=== PATIENT | male | born 1985 | race African-American/Black ===

== ENCOUNTER 2016-10-21 03:04 | Emergency (ER) | payer OTHER ==
[~2016-10-21] VITALS: Ht 172.7 cm; Wt 69.1 kg
[~2016-10-21 03:04] MED LIST: ACCU-CHEK FASTCLIX L XX; AMLODIPINE BESYL5 MG PO; AMOXICILLIN500 M2 PO; AMOXICILLIN500 MG PO; ANTIBIOTIC OINTMENT; ATORVASTATIN CA40 MG PO; BENADRYL 50MG C50 MG PO; CEPHALEXIN500 MG OR; CIPRO500 MG OR; DONNATA1 OR; FAMOTIDINE20 M1 OR; FISH OIL1000 MG PO; GLUCOPHAGE500 MG PO; HYDROCODONE/ACE1 TAB PO; LEVEMIR1000 UNITS SC; LOPID600 MG PO; LORTAB 10-325 M1 TAB PO; LORTAB 5 OR; LORTAB 7.5 OR; LOSARTAN POTASS25 MG PO; LOVAZA1 GM PO; METRONIDAZOL500 MG PO; MUPIROCIN2 % EX; NAPROSYN500 MG PO; NO CURRENT MEDS; NO HOME MEDS; ONE TOUCH ULTRA 50 XX; PEPCID20 MG PO; PHENERGAN25 MG/TAB PO; PRILOSEC20 MG/CAP PO; ULTRAM50 MG OR; ZANTAC150 M1 PO; ZOFRAN ODT4 MG OR
[2016-10-21 03:43] LABS: URINE BILIRUBIN - DIPSTICK NEGATIVE (NEGATIVE); URINE BLOOD DIPSTICK SMALL (NEGATIVE); URINE CLARITY CLEAR; URINE COLOR YELLOW; URINE GLUCOSE - DIPSTICK NEGATIVE (NEGATIVE); URINE KETONE NEGATIVE (NEGATIVE); URINE LEUK ESTERASE NEGATIVE (NEGATIVE); URINE NITRITE - DIPSTICK NEGATIVE (Negative); URINE PH 5.5 (4.5-8.0); URINE PROTEIN - DIPSTICK NEGATIVE (NEG-TRACE); URINE SPECIFIC GRAVITY 1.025; URINE UROBILINOGEN - DIPSTICK 0.2 E.U./dL (0.2)
[2016-10-21 03:45] LABS: HEMATOCRIT 44.3 % (39.0-50.0); HEMOGLOBIN 14.3 g/dl (14.0-18.0); IMMATURE GRANULOCYTES 0.5 % (0.0-1.0); MEAN CELL VOLUME 85.4 fL CALC (80.0-100.0); MEAN CORPUSCULAR HGB 27.6 pG CALC (26.0-32.0); MEAN CORPUSCULAR HGB CONC 32.3 g/L CALC (32.0-36.0); NEUT# 5.23 thou/uL (1.82-7.42); RED BLOOD COUNT 5.19 mill/uL (4.70-6.10); RED CELL DISTRI WIDTH 14.3 % (11.5-15.5)
[2016-10-21 03:48] LABS: BARBITURATES NEGATIVE (NEGATIVE); COCAINE POSITIVE (NEGATIVE); METHADONE NEGATIVE (NEGATIVE); OXCYCODONE NEGATIVE (NEGATIVE); TETRAHYDROCANNABIONOL NEGATIVE (NEGATIVE); TRICYLIC ANTIDEPRESSANTS NEGATIVE (NEGATIVE)
[2016-10-21 03:51] LABS: URINE RBC 0-2 RBC/hpf (0-5); URINE SQUAMOUS EPITHELIAL CELL FEW EPI/hpf (0-FEW); URINE WBC 0-2 WBC/hpf (0-5)
[2016-10-21 04:34] LABS: ALBUMIN 4.7 g/dL (3.2-5.0); ALKALINE PHOSPHATASE 74 u/l (38-126); ANION GAP 16 (6-22 (CALC)); BILIRUBIN, TOTAL 0.4 mg/dL (0.0-1.4); BUN 13 mg/dL (9-20); BUN/CREATININE RATIO 15 (12-20 (CALC)); CALCIUM 10.1 mg/dL (8.4-10.2); CARBON DIOXIDE 26 mmol/l (22-30); CHLORIDE 103 mmol/l (95-108); CREATININE 0.9 mg/dL (0.7-1.3); GFR > 60 ML/MIN (>=60 (CALC)); GFR FOR AFR.AMER. > 60 ML/MIN (>=60 (CALC)); GLUCOSE 122 mg/dL (75-110); POTASSIUM 4.4 mmol/l (3.5-5.1); SGOT/AST 70 u/l (17-59); SGPT/ALT 72 u/l (21-72); SODIUM 141 mmol/l (137-146); TOTAL PROTEIN 7.7 g/dL (6.3-8.2)
[2016-10-21 05:00] VITALS: BP 147/50
== END 2016-10-21 05:00 | disposition home or self-care (01) | DRG 897 ==
LOC: ED 03:04
PROVIDERS: Emergency Medicine
DX: F19.10 Other psychoactive substance abuse, uncomplicated (principal); I10 Essential (primary) hypertension; E11.9 Type 2 diabetes mellitus without complications; Z79.4 Long term (current) use of insulin

== ENCOUNTER 2017-02-27 18:38 | Observation (INO) | payer SELFPAY ==
[~2017-02-27] VITALS: Ht 172.7 cm; Wt 67.2 kg
[2017-02-27] MEDS ORDERED: BENTYL10 MG PO (18:56)
[2017-02-27] MEDS ORDERED: OMEPRAZOLE10 MG PO (18:56)
[2017-02-27 19:25] LABS: HEMATOCRIT 41.6 % (39.0-50.0); HEMOGLOBIN 14.7 g/dl (14.0-18.0); IMMATURE GRANULOCYTES 0.5 % (0.0-1.0); MEAN CELL VOLUME 82.5 fL CALC (80.0-100.0); MEAN CORPUSCULAR HGB 29.2 pG CALC (26.0-32.0); MEAN CORPUSCULAR HGB CONC 35.3 g/L CALC (32.0-36.0); NEUT# 7.23 thou/uL (1.82-7.42); RED BLOOD COUNT 5.04 mill/uL (4.70-6.10); RED CELL DISTRI WIDTH 13.2 % (11.5-15.5)
[2017-02-27 19:36] LABS: ALBUMIN 4.9 g/dL (3.2-5.0); ALKALINE PHOSPHATASE 116 u/l (38-126); AMYLASE 75 u/l (30-110); ANION GAP 21 (6-22 (CALC)); BILIRUBIN, TOTAL 0.5 mg/dL (0.0-1.4); BUN 15 mg/dL (9-20); BUN/CREATININE RATIO 15 (12-20 (CALC)); CALCIUM 10.8 mg/dL (8.4-10.2); CARBON DIOXIDE 23 mmol/l (22-30); CHLORIDE 100 mmol/l (95-108); GFR > 60 ML/MIN (>=60 (CALC)); GFR FOR AFR.AMER. > 60 ML/MIN (>=60 (CALC)); GLUCOSE 205 mg/dL (75-110); LIPASE 417 u/l (23-300); POTASSIUM 4.7 mmol/l (3.5-5.1); SGOT/AST 40 u/l (17-59); SGPT/ALT 79 u/l (21-72); SODIUM 140 mmol/l (137-146); TOTAL PROTEIN 8.8 g/dL (6.3-8.2)
[2017-02-27 21:06] LABS: URINE BLOOD DIPSTICK SMALL (NEGATIVE); URINE COLOR YELLOW; URINE GLUCOSE - DIPSTICK NEGATIVE (NEGATIVE); URINE KETONE NEGATIVE (NEGATIVE); URINE LEUK ESTERASE NEGATIVE (NEGATIVE); URINE NITRITE - DIPSTICK NEGATIVE (Negative); URINE PROTEIN - DIPSTICK 100 mg/dL (NEG-TRACE); URINE SPECIFIC GRAVITY >=1.030; URINE UROBILINOGEN - DIPSTICK 0.2 E.U./dL (0.2)
[2017-02-27 21:09] LABS: URINE BILIRUBIN - DIPSTICK NEGATIVE (NEGATIVE); URINE CLARITY CLEAR
[2017-02-28 02:35] VITALS: BP 121/85
[2017-02-28 08:59] VITALS: BP 112/72
[2017-02-28 09:55] LABS: HDL CHOLESTEROL 25 mg/dL (>=40); TOTAL CHOLESTEROL 299 mg/dl (0-199)
[2017-02-28 10:13] LABS: TOTAL TRIGLYCERIDES 3450 mg/dl (30-149); VLDL CHOLESTROL 690 mg/dl (5-56 (CALC))
[2017-02-28] MEDS ORDERED: LORTAB 5/3255 MG PO (13:44)
[2017-02-28] MEDS ORDERED: NOVOLIN 70/30 SC (13:52)
[2017-02-28] MEDS ORDERED: ATORVASTATIN CA40 MG PO (13:52)
[2017-02-28] MEDS ORDERED: LOPID600 MG PO (13:52)
== END 2017-02-28 16:07 | disposition home or self-care (01) | DRG 440 ==
LOC: ED 18:38 → ED-I 02-28 01:51 → ED 02-28 02:07 → MS2 02-28 02:08
PROVIDERS: Emergency Medicine; Nurse Practitioner Family; ADMIT Internal Medicine; ATTEND Internal Medicine
DX: K85.20 Alcohol induced acute pancreatitis without necrosis or infection (principal); E11.69 Type 2 diabetes mellitus with other specified complication; E78.1 Pure hyperglyceridemia; K86.0 Alcohol-induced chronic pancreatitis; I10 Essential (primary) hypertension; Z79.4 Long term (current) use of insulin
CPT/HCPCS: G0378; S0164

== ENCOUNTER 2021-08-05 23:45 | Inpatient (IN) | payer SELFPAY ==
[~2021-08-05] VITALS: Ht 172.7 cm; Wt 54.0 kg
[~2021-08-05 23:45] MED LIST changes: +BENTYL10 MG PO; +LORTAB 5/3255 MG PO; +NOVOLIN 70/30 SC; +OMEPRAZOLE10 MG PO
[2021-08-05 23:53] VITALS: BP 147/110
[2021-08-06] VITALS (91 sets, daily range): BP systolic 100–167; BP diastolic 53–112
[2021-08-06] MEDS ORDERED: NOVOLIN 70/30 F1 INJ SC (00:02)
[2021-08-06 00:26] LABS: HEMOGLOBIN 16.6 g/dl (14.0-18.0); IMMATURE GRANULOCYTES 0.5 % (0.0-5.0); MEAN CORPUSCULAR HGB 29.1 pG CALC (26.0-32.0); MEAN CORPUSCULAR HGB CONC 33.1 g/dL CAL (32.0-36.0); NEUT# 20.21 thou/uL (1.82-7.42); RED BLOOD COUNT 5.71 mill/uL (4.70-6.10); RED CELL DISTRI WIDTH 13.7 % (11.5-15.5)
[2021-08-06 00:29] LABS: HEMATOCRIT 50.2 % (39.0-50.0); MEAN CELL VOLUME 87.9 fL CALC (80.0-100.0)
[2021-08-06 01:25] LABS: ALBUMIN 4.8 g/dL (3.2-5.0); ALKALINE PHOSPHATASE 167 u/l (38-126); BILIRUBIN, TOTAL 0.6 mg/dL (0.0-1.4); BUN 15 mg/dL (9-20); BUN/CREATININE RATIO 10 (12-20 (CALC)); CHLORIDE 93 mmol/l (95-108); CREATININE 1.5 mg/dL (0.7-1.3); GFR FOR AFR.AMER. > 60 ML/MIN (>=60 (CALC)); GFR OTHER RACES 53 ML/MIN (>=60 (CALC)); SGOT/AST 40 u/l (17-59); SODIUM 135 mmol/l (137-146)
[2021-08-06 01:27] LABS: ANION GAP 44 (6-22 (CALC)); TOTAL PROTEIN 10.7 g/dL (6.3-8.2)
[2021-08-06 01:28] LABS: CARBON DIOXIDE < 5 mmol/l (22-30); POTASSIUM 6.5 mmol/l (3.5-5.1)
[2021-08-06 01:30] LABS: MYOGLOBIN 59 ng/mL (0 - 121)
[2021-08-06 01:47] LABS: AMYLASE 135 u/l (30-110); LIPASE 692 u/l (23-300)
[2021-08-06 03:10] LABS: IMMATURE GRANULOCYTES 0.4 % (0.0-5.0); MEAN CELL VOLUME 90.4 fL CALC (80.0-100.0); MEAN CORPUSCULAR HGB 29.8 pG CALC (26.0-32.0); MEAN CORPUSCULAR HGB CONC 32.9 g/dL CAL (32.0-36.0); NEUT# 14.55 thou/uL (1.82-7.42); RED BLOOD COUNT 4.8 mill/uL (4.70-6.10); RED CELL DISTRI WIDTH 13.8 % (11.5-15.5)
[2021-08-06 03:15] LABS: HEMATOCRIT 43.4 % (39.0-50.0); HEMOGLOBIN 14.3 g/dl (14.0-18.0)
[2021-08-06 06:54] LABS: BUN 12 mg/dL (9-20); BUN/CREATININE RATIO 14 (12-20 (CALC)); CREATININE 0.8 mg/dL (0.7-1.3); GFR FOR AFR.AMER. > 60 ML/MIN (>=60 (CALC)); GFR OTHER RACES > 60 ML/MIN (>=60 (CALC)); SODIUM 137 mmol/l (137-146)
[2021-08-06 07:00] LABS: ANION GAP 23 (6-22 (CALC)); CHLORIDE 108 mmol/l (95-108); POTASSIUM 4.9 mmol/l (3.5-5.1)
[2021-08-06 07:01] LABS: CARBON DIOXIDE 11 mmol/l (22-30)
[2021-08-06 09:24] LABS: BUN 11 mg/dL (9-20); BUN/CREATININE RATIO 15 (12-20 (CALC)); CHLORIDE 110 mmol/l (95-108); CREATININE 0.7 mg/dL (0.7-1.3); GFR FOR AFR.AMER. > 60 ML/MIN (>=60 (CALC)); GFR OTHER RACES > 60 ML/MIN (>=60 (CALC)); SODIUM 138 mmol/l (137-146)
[2021-08-06 10:48] LABS: ANION GAP 14 (6-22 (CALC)); CARBON DIOXIDE 18 mmol/l (22-30); POTASSIUM 3.8 mmol/l (3.5-5.1)
[2021-08-06 13:46] LABS: ANION GAP 16 (6-22 (CALC)); BUN 9 mg/dL (9-20); BUN/CREATININE RATIO 13 (12-20 (CALC)); CARBON DIOXIDE 17 mmol/l (22-30); CHLORIDE 108 mmol/l (95-108); CREATININE 0.7 mg/dL (0.7-1.3); GFR FOR AFR.AMER. > 60 ML/MIN (>=60 (CALC)); GFR OTHER RACES > 60 ML/MIN (>=60 (CALC)); POTASSIUM 3.6 mmol/l (3.5-5.1); SODIUM 137 mmol/l (137-146)
[2021-08-06 17:41] LABS: ANION GAP 14 (6-22 (CALC)); BUN 8 mg/dL (9-20); BUN/CREATININE RATIO 12 (12-20 (CALC)); CARBON DIOXIDE 19 mmol/l (22-30); CHLORIDE 107 mmol/l (95-108); CREATININE 0.7 mg/dL (0.7-1.3); GFR FOR AFR.AMER. > 60 ML/MIN (>=60 (CALC)); GFR OTHER RACES > 60 ML/MIN (>=60 (CALC)); SODIUM 136 mmol/l (137-146)
[2021-08-06 21:04] LABS: ANION GAP 13 (6-22 (CALC)); BUN 7 mg/dL (9-20); BUN/CREATININE RATIO 8 (12-20 (CALC)); CARBON DIOXIDE 20 mmol/l (22-30); CHLORIDE 106 mmol/l (95-108); CREATININE 0.9 mg/dL (0.7-1.3); GFR FOR AFR.AMER. > 60 ML/MIN (>=60 (CALC)); GFR OTHER RACES > 60 ML/MIN (>=60 (CALC)); POTASSIUM 3.7 mmol/l (3.5-5.1); SODIUM 135 mmol/l (137-146)
[2021-08-07] VITALS (29 sets, daily range): BP systolic 92–142; BP diastolic 50–103
[2021-08-07 05:04] LABS: IMMATURE GRANULOCYTES 0.2 % (0.0-5.0); MEAN CELL VOLUME 89.4 fL CALC (80.0-100.0); MEAN CORPUSCULAR HGB 29.4 pG CALC (26.0-32.0); MEAN CORPUSCULAR HGB CONC 32.9 g/dL CAL (32.0-36.0); NEUT# 3.19 thou/uL (1.82-7.42); RED BLOOD COUNT 3.95 mill/uL (4.70-6.10); RED CELL DISTRI WIDTH 14.7 % (11.5-15.5)
[2021-08-07 05:13] LABS: HEMATOCRIT 35.3 % (39.0-50.0); HEMOGLOBIN 11.6 g/dl (14.0-18.0)
[2021-08-07 05:16] LABS: ANION GAP 13 (6-22 (CALC)); BUN 7 mg/dL (9-20); BUN/CREATININE RATIO 9 (12-20 (CALC)); CARBON DIOXIDE 20 mmol/l (22-30); CHLORIDE 110 mmol/l (95-108); CREATININE 0.7 mg/dL (0.7-1.3); GFR FOR AFR.AMER. > 60 ML/MIN (>=60 (CALC)); GFR OTHER RACES > 60 ML/MIN (>=60 (CALC)); POTASSIUM 3.4 mmol/l (3.5-5.1); SODIUM 139 mmol/l (137-146)
[2021-08-07] MEDS ORDERED: NOVOLIN 70/30 F1 INJ SC (13:36)
== END 2021-08-07 13:30 | disposition home or self-care (01) | DRG 639 ==
LOC: ED 23:45 → ICU 08-06 02:51
PROVIDERS: Family Medicine; Hospitalist; ADMIT Internal Medicine; ATTEND Internal Medicine
DX: E11.10 Type 2 diabetes mellitus with ketoacidosis without coma (principal); I10 Essential (primary) hypertension; E78.5 Hyperlipidemia, unspecified; T38.3X6A Underdosing of insulin and oral hypoglycemic [antidiabetic] drugs, initial encounter; Z91.128 Patient's intentional underdosing of medication regimen for other reason; Z79.4 Long term (current) use of insulin; Z20.822 Contact with and (suspected) exposure to COVID-19
CPT/HCPCS: Q9967

== ENCOUNTER 2021-11-24 11:12 | Inpatient (IN) | payer SELFPAY ==
[~2021-11-24] VITALS: Ht 172.7 cm; Wt 61.0 kg
[2021-11-24] VITALS (17 sets, daily range): BP systolic 115–159; BP diastolic 75–101
[~2021-11-24 11:12] MED LIST changes: +NOVOLIN 70/30 F1 INJ SC
[2021-11-24 12:15] LABS: MEAN CELL VOLUME 88.8 fL CALC (80.0-100.0); MEAN CORPUSCULAR HGB 28.5 pG CALC (26.0-32.0); MEAN CORPUSCULAR HGB CONC 32.1 g/dL CAL (32.0-36.0); NEUT# 18.99 thou/uL (1.82-7.42); RED BLOOD COUNT 5.34 mill/uL (4.70-6.10); RED CELL DISTRI WIDTH 13.3 % (11.5-15.5)
[2021-11-24 12:22] LABS: HEMOGLOBIN 15.2 g/dl (14.0-18.0)
[2021-11-24 12:23] LABS: HEMATOCRIT 47.4 % (39.0-50.0)
[2021-11-24 12:25] LABS: ALBUMIN 5.3 g/dL (3.2-5.0); ALKALINE PHOSPHATASE 168 u/l (38-126); AMYLASE 123 u/l (30-110); BILIRUBIN, TOTAL 0.6 mg/dL (0.0-1.4); BUN 25 mg/dL (9-20); ETHYL ALCOHOL 0 mg/dl (0-30); LIPASE 759 u/l (23-300); SGOT/AST 34 u/l (17-59); TOTAL PROTEIN 9.7 g/dL (6.3-8.2)
[2021-11-24 12:36] LABS: MYOGLOBIN 98 ng/mL (0 - 121)
[2021-11-24 12:39] LABS: BUN/CREATININE RATIO 12 (12-20 (CALC)); CREATININE 2.1 mg/dL (0.7-1.3); GFR FOR AFR.AMER. 43 ML/MIN (>=60 (CALC)); GFR OTHER RACES 36 ML/MIN (>=60 (CALC))
[2021-11-24 12:40] LABS: SODIUM 130 mmol/l (137-146)
[2021-11-24 12:41] LABS: ANION GAP 44 (6-22 (CALC)); CARBON DIOXIDE < 5 mmol/l (22-30); CHLORIDE 89 mmol/l (95-108); POTASSIUM 8.4 mmol/l (3.5-5.1)
[2021-11-24] MEDS ORDERED: TRESIBA100 UNIT/M (13:31)
[2021-11-24 14:28] LABS: CREATININE 1.7 mg/dL (0.7-1.3)
[2021-11-24 14:39] LABS: POTASSIUM 6.1 mmol/l (3.5-5.1)
[2021-11-24 16:23] LABS: URINE BLOOD DIPSTICK MODERATE (NEGATIVE); URINE COLOR YELLOW; URINE GLUCOSE - DIPSTICK >=1000 mg/dL (NEGATIVE); URINE KETONE >=80 mg/dL (NEGATIVE); URINE LEUK ESTERASE NEGATIVE (NEGATIVE); URINE PH 5.5 (4.5-8.0); URINE PROTEIN - DIPSTICK 30 mg/dL (NEG-TRACE); URINE SPECIFIC GRAVITY 1.025; URINE UROBILINOGEN - DIPSTICK 0.2 E.U./dL (0.2)
[2021-11-24 16:28] LABS: URINE BILIRUBIN - DIPSTICK SMALL (NEGATIVE)
[2021-11-24 16:29] LABS: URINE NITRITE - DIPSTICK NEGATIVE (Negative)
[2021-11-24 16:32] LABS: BUN 23 mg/dL (9-20); BUN/CREATININE RATIO 17 (12-20 (CALC)); CHLORIDE 106 mmol/l (95-108); CREATININE 1.4 mg/dL (0.7-1.3); GFR FOR AFR.AMER. > 60 ML/MIN (>=60 (CALC)); GFR OTHER RACES 57 ML/MIN (>=60 (CALC)); SODIUM 139 mmol/l (137-146)
[2021-11-24 16:33] LABS: URINE WBC 0-2 WBC/hpf (0-5)
[2021-11-24 16:35] LABS: ANION GAP 30 (6-22 (CALC)); POTASSIUM 5.9 mmol/l (3.5-5.1)
[2021-11-24 16:36] LABS: CARBON DIOXIDE 9 mmol/l (22-30)
[2021-11-24 18:27] LABS: ANION GAP 27 (6-22 (CALC)); BUN 20 mg/dL (9-20); BUN/CREATININE RATIO 18 (12-20 (CALC)); CARBON DIOXIDE 10 mmol/l (22-30); CHLORIDE 107 mmol/l (95-108); CREATININE 1.1 mg/dL (0.7-1.3); GFR FOR AFR.AMER. > 60 ML/MIN (>=60 (CALC)); GFR OTHER RACES > 60 ML/MIN (>=60 (CALC)); SODIUM 139 mmol/l (137-146)
[2021-11-24 18:42] LABS: HDL CHOLESTEROL 73 mg/dL (>=40); TOTAL CHOLESTEROL 314 mg/dl (0-199)
[2021-11-24 18:52] LABS: TOTAL TRIGLYCERIDES > 1575 mg/dl (30-149)
[2021-11-24 18:53] LABS: VLDL CHOLESTROL 315 mg/dl (5-56 (CALC))
[2021-11-24 20:25] LABS: BUN 16 mg/dL (9-20); BUN/CREATININE RATIO 18 (12-20 (CALC)); CARBON DIOXIDE 12 mmol/l (22-30); CHLORIDE 114 mmol/l (95-108); CREATININE 0.9 mg/dL (0.7-1.3); GFR FOR AFR.AMER. > 60 ML/MIN (>=60 (CALC)); GFR OTHER RACES > 60 ML/MIN (>=60 (CALC)); SODIUM 142 mmol/l (137-146)
[2021-11-24 20:28] LABS: ANION GAP 20 (6-22 (CALC)); POTASSIUM 3.9 mmol/l (3.5-5.1)
[2021-11-24 22:21] LABS: ANION GAP 20 (6-22 (CALC)); BUN 17 mg/dL (9-20); BUN/CREATININE RATIO 19 (12-20 (CALC)); CHLORIDE 108 mmol/l (95-108); CREATININE 0.9 mg/dL (0.7-1.3); GFR FOR AFR.AMER. > 60 ML/MIN (>=60 (CALC)); GFR OTHER RACES > 60 ML/MIN (>=60 (CALC)); POTASSIUM 4.5 mmol/l (3.5-5.1); SODIUM 139 mmol/l (137-146)
[2021-11-24 22:28] LABS: CARBON DIOXIDE 16 mmol/l (22-30)
[2021-11-25] VITALS (19 sets, daily range): BP systolic 101–135; BP diastolic 56–86
[2021-11-25 00:36] LABS: ANION GAP 18 (6-22 (CALC)); BUN 16 mg/dL (9-20); BUN/CREATININE RATIO 18 (12-20 (CALC)); CARBON DIOXIDE 19 mmol/l (22-30); CHLORIDE 107 mmol/l (95-108); CREATININE 0.9 mg/dL (0.7-1.3); GFR FOR AFR.AMER. > 60 ML/MIN (>=60 (CALC)); GFR OTHER RACES > 60 ML/MIN (>=60 (CALC)); POTASSIUM 4.2 mmol/l (3.5-5.1); SODIUM 140 mmol/l (137-146)
[2021-11-25 04:59] LABS: HEMATOCRIT 36.8 % (39.0-50.0); HEMOGLOBIN 12.4 g/dl (14.0-18.0); IMMATURE GRANULOCYTES 0.3 % (0.0-5.0); MEAN CELL VOLUME 83.8 fL CALC (80.0-100.0); MEAN CORPUSCULAR HGB 28.2 pG CALC (26.0-32.0); MEAN CORPUSCULAR HGB CONC 33.7 g/dL CAL (32.0-36.0); NEUT# 7.16 thou/uL (1.82-7.42); RED BLOOD COUNT 4.39 mill/uL (4.70-6.10); RED CELL DISTRI WIDTH 13.5 % (11.5-15.5)
[2021-11-25 05:11] LABS: ALBUMIN 4.1 g/dL (3.2-5.0); ALKALINE PHOSPHATASE 103 u/l (38-126); ANION GAP 20 (6-22 (CALC)); BILIRUBIN, TOTAL 0.3 mg/dL (0.0-1.4); BUN 15 mg/dL (9-20); BUN/CREATININE RATIO 19 (12-20 (CALC)); CARBON DIOXIDE 16 mmol/l (22-30); CHLORIDE 103 mmol/l (95-108); CREATININE 0.8 mg/dL (0.7-1.3); GFR FOR AFR.AMER. > 60 ML/MIN (>=60 (CALC)); GFR OTHER RACES > 60 ML/MIN (>=60 (CALC)); LIPASE 328 u/l (23-300); POTASSIUM 4.4 mmol/l (3.5-5.1); SGOT/AST 25 u/l (17-59); SODIUM 135 mmol/l (137-146); TOTAL PROTEIN 6.5 g/dL (6.3-8.2)
[2021-11-26 04:12] VITALS: BP 108/69
[2021-11-26 05:26] LABS: HEMATOCRIT 33.9 % (39.0-50.0); HEMOGLOBIN 11.5 g/dl (14.0-18.0); IMMATURE GRANULOCYTES 0.4 % (0.0-5.0); MEAN CELL VOLUME 84.1 fL CALC (80.0-100.0); MEAN CORPUSCULAR HGB 28.5 pG CALC (26.0-32.0); MEAN CORPUSCULAR HGB CONC 33.9 g/dL CAL (32.0-36.0); NEUT# 3.04 thou/uL (1.82-7.42); RED BLOOD COUNT 4.03 mill/uL (4.70-6.10)
[2021-11-26 05:42] LABS: ALBUMIN 3.5 g/dL (3.2-5.0); ALKALINE PHOSPHATASE 86 u/l (38-126); AMYLASE 69 u/l (30-110); BILIRUBIN, TOTAL 0.2 mg/dL (0.0-1.4); BUN 9 mg/dL (9-20); BUN/CREATININE RATIO 14 (12-20 (CALC)); CHLORIDE 100 mmol/l (95-108); CREATININE 0.7 mg/dL (0.7-1.3); GFR FOR AFR.AMER. > 60 ML/MIN (>=60 (CALC)); GFR OTHER RACES > 60 ML/MIN (>=60 (CALC)); LIPASE 155 u/l (23-300); SGOT/AST 30 u/l (17-59); SODIUM 135 mmol/l (137-146); TOTAL PROTEIN 5.9 g/dL (6.3-8.2)
[2021-11-26 05:51] LABS: ANION GAP 10 (6-22 (CALC)); CARBON DIOXIDE 28 mmol/l (22-30); POTASSIUM 3.2 mmol/l (3.5-5.1)
[2021-11-26 06:05] VITALS: BP 108/63
[2021-11-26 11:10] VITALS: BP 119/80
[2021-11-26] MEDS ORDERED: FISH OIL1000 M2 PO (12:06)
[2021-11-26] MEDS ORDERED: FENOFIBRATE54 MG PO (12:08)
[2021-11-26] MEDS ORDERED: HUMULIN 70/30 SC (12:10)
[2021-11-26] MEDS ORDERED: LORTAB 5/3255 MG PO (12:27)
== END 2021-11-26 14:12 | disposition home or self-care (01) | DRG 637 ==
LOC: ED 11:12 → ED-I 13:00 → ED 13:29 → ICU 13:30 → MS2 13:30
PROVIDERS: Emergency Medicine; Internal Medicine Nephrology; ADMIT Internal Medicine; ATTEND Internal Medicine
DX: E11.10 Type 2 diabetes mellitus with ketoacidosis without coma (principal); K85.20 Alcohol induced acute pancreatitis without necrosis or infection; N17.9 Acute kidney failure, unspecified; E87.5 Hyperkalemia; I10 Essential (primary) hypertension; F10.20 Alcohol dependence, uncomplicated; E86.9 Volume depletion, unspecified; E78.5 Hyperlipidemia, unspecified; I95.9 Hypotension, unspecified; E78.1 Pure hyperglyceridemia; T38.3X6A Underdosing of insulin and oral hypoglycemic [antidiabetic] drugs, initial encounter; Z91.120 Patient's intentional underdosing of medication regimen due to financial hardship; Z79.4 Long term (current) use of insulin; Z20.822 Contact with and (suspected) exposure to COVID-19
CPT/HCPCS: S0164

== ENCOUNTER 2022-07-15 12:46 | Emergency (ER) | payer SELFPAY ==
[~2022-07-15] VITALS: Ht 172.7 cm; Wt 79.0 kg
[~2022-07-15 12:46] MED LIST changes: +FENOFIBRATE54 MG PO; +FISH OIL1000 M2 PO; +HUMULIN 70/30 SC; +TRESIBA100 UNIT/M
[2022-07-15 13:31] VITALS: BP 133/103
[2022-07-15 13:45] LABS: ALKALINE PHOSPHATASE 107 u/l (38-126); BUN 21 mg/dL (9-20); BUN/CREATININE RATIO 24 (12-20 (CALC)); CREATININE 0.9 mg/dL (0.7-1.3); GFR FOR AFR.AMER. > 60 ML/MIN (>=60 (CALC)); GFR OTHER RACES > 60 ML/MIN (>=60 (CALC)); LIPASE 240 u/l (23-300)
[2022-07-15 13:46] LABS: ALBUMIN 4.3 g/dL (3.2-5.0); ANION GAP 13 (6-22 (CALC)); BILIRUBIN, TOTAL 0.5 mg/dL (0.2-1.3); CARBON DIOXIDE 22 mmol/l (22-30); CHLORIDE 113 mmol/l (95-108); POTASSIUM 4.3 mmol/l (3.5-5.1); SGOT/AST 132 u/l (17-59); SODIUM 144 mmol/l (137-146); TOTAL PROTEIN 7.4 g/dL (6.3-8.2)
[2022-07-15 13:48] LABS: BASO% 0.2 % (0-3); EOS% 1.2 % (0-8); HEMOGLOBIN 12.9 g/dl (14.0-18.0); MEAN CORPUSCULAR HGB 29.1 pG CALC (26.0-32.0); MEAN CORPUSCULAR HGB CONC 31.1 g/dL CAL (32.0-36.0); MONO% 8.2 % (2-13); NEUT# 2.16 thou/uL (1.82-7.42); NEUT% 50.4 % (42-76); RED BLOOD COUNT 4.43 mill/uL (4.70-6.10); RED CELL DISTRI WIDTH 12.9 % (11.5-15.5); URINE BILIRUBIN - DIPSTICK NEGATIVE (NEGATIVE); URINE BLOOD DIPSTICK SMALL (NEGATIVE); URINE COLOR YELLOW; URINE GLUCOSE - DIPSTICK NEGATIVE (NEGATIVE); URINE KETONE NEGATIVE (NEGATIVE); URINE LEUK ESTERASE NEGATIVE (NEGATIVE); URINE NITRITE - DIPSTICK NEGATIVE (Negative); URINE PH 5.5 (4.5-8.0); URINE PROTEIN - DIPSTICK TRACE mg/dL (NEG-TRACE); URINE SPECIFIC GRAVITY >=1.030; URINE UROBILINOGEN - DIPSTICK 0.2 E.U./dL (0.2)
[2022-07-15 13:49] LABS: HEMATOCRIT 41.5 % (39.0-50.0); MEAN CELL VOLUME 93.7 fL CALC (80.0-100.0)
[2022-07-15 13:56] LABS: URINE RBC 0-2 RBC/hpf (0-5)
[2022-07-15 15:00] VITALS: BP 141/91
[2022-07-15 15:30] VITALS: BP 142/88
[2022-07-15] MEDS ORDERED: ZOFRAN4 MG/TAB PO (15:31)
[2022-07-15] MEDS ORDERED: LEVSIN0.125 M1 PO (15:31)
[2022-07-15 16:10] VITALS: BP 142/88
== END 2022-07-15 16:23 | disposition home or self-care (01) | DRG 392 ==
LOC: ED 12:46 → ED-I 13:06 → ED 16:23
PROVIDERS: Family Medicine
DX: R10.13 Epigastric pain (principal); I10 Essential (primary) hypertension; E11.9 Type 2 diabetes mellitus without complications; E78.5 Hyperlipidemia, unspecified; Z79.4 Long term (current) use of insulin
CPT/HCPCS: Q9967

== ENCOUNTER 2022-07-16 12:46 | Observation (INO) | payer SELFPAY ==
[2022-07-16] VITALS (7 sets, daily range): BP systolic 130–171; BP diastolic 79–121
[~2022-07-16] VITALS: Ht 172.7 cm; Wt 64.8 kg
[~2022-07-16 12:46] MED LIST changes: +LEVSIN0.125 M1 PO; +ZOFRAN4 MG/TAB PO
--- NOTE | 2022-07-16 12:47 | NUR ---
PATIENT TO ROOM WITH STEADY GAIT.
[2022-07-16 13:17] LABS: BASO% 0.2 % (0-3); EOS% 0.8 % (0-8); HEMATOCRIT 43.1 % (39.0-50.0); IMMATURE GRANULOCYTES 0.3 % (0.0-5.0); MEAN CORPUSCULAR HGB 28.4 pG CALC (26.0-32.0); MEAN CORPUSCULAR HGB CONC 32.5 g/dL CAL (32.0-36.0); MONO% 8.1 % (2-13); NEUT# 4.27 thou/uL (1.82-7.42); NEUT% 72.6 % (42-76); RED BLOOD COUNT 4.93 mill/uL (4.70-6.10); RED CELL DISTRI WIDTH 12.2 % (11.5-15.5)
[2022-07-16 13:25] LABS: MEAN CELL VOLUME 87.4 fL CALC (80.0-100.0)
[2022-07-16 13:28] LABS: HDL CHOLESTEROL 45 mg/dL (39.0-59.0)
[2022-07-16 13:29] LABS: ALBUMIN 4.6 g/dL (3.2-5.0); ALKALINE PHOSPHATASE 123 u/l (38-126); AMYLASE 139 u/l (30-110); BUN 10 mg/dL (9-20); BUN/CREATININE RATIO 12 (12-20 (CALC)); CARBON DIOXIDE 18 mmol/l (22-30); CREATININE 0.8 mg/dL (0.7-1.3); GFR FOR AFR.AMER. > 60 ML/MIN (>=60 (CALC)); GFR OTHER RACES > 60 ML/MIN (>=60 (CALC)); LIPASE 627 u/l (23-300); POTASSIUM 4.2 mmol/l (3.5-5.1); SGOT/AST 132 u/l (17-59); TOTAL PROTEIN 7.6 g/dL (6.3-8.2)
[2022-07-16 13:30] LABS: ANION GAP 20 (6-22 (CALC)); BILIRUBIN, TOTAL 1.1 mg/dL (0.2-1.3); CHLORIDE 99 mmol/l (95-108); CHOLESTEROL HDL RATIO 2.8 (<4.4 (CALC)); SODIUM 133 mmol/l (137-146); TOTAL CHOLESTEROL 125 mg/dl (0-199); TOTAL TRIGLYCERIDES 436 mg/dl (0-149)
[2022-07-16 14:14] LABS: URINE BLOOD DIPSTICK TRACE-INTACT (NEGATIVE); URINE COLOR YELLOW; URINE GLUCOSE - DIPSTICK 250 mg/dL (NEGATIVE); URINE KETONE >=80 mg/dL (NEGATIVE); URINE LEUK ESTERASE NEGATIVE (NEGATIVE); URINE PH 5.5 (4.5-8.0); URINE PROTEIN - DIPSTICK 30 mg/dL (NEG-TRACE); URINE SPECIFIC GRAVITY >=1.030; URINE UROBILINOGEN - DIPSTICK 0.2 E.U./dL (0.2)
[2022-07-16 14:22] LABS: URINE BILIRUBIN - DIPSTICK SEE COMMNET (NEGATIVE); URINE NITRITE - DIPSTICK NEGATIVE (Negative)
--- NOTE | 2022-07-16 14:30 | NUR ---
PT SITTING UP IN BED, STATED PAIN MED WAS SOMEWHAT EFFECTIVE PAIN /10; GOING FOR CT VIA W/C ACCOMPANIED BY CT STAFF IN STABLE CONDITION.
--- NOTE | 2022-07-16 14:44 | NUR ---
PT RTRND FROM CT VIA W/C IN STABLE CONDITION.
--- NOTE | 2022-07-16 15:20 | NUR ---
PT AMBULATED WITH SLOW, STEADY GAIT TO RESTROOM WITHOUT ASSISTANCE.
--- NOTE | 2022-07-16 15:33 | NUR ---
PT REQUESTING SOMETHING TO EAT, CAN ONLY HAVE ICE CHIPS DUE TO UPCOMING US TEST.
--- NOTE | 2022-07-16 15:35 | NUR ---
PT OFF TO US VIA W/C IN STABLE CONDITION.
--- NOTE | 2022-07-16 16:57 | NUR ---
MEDICATED PER EMAR; CALL URIOSTEGUI IN REACH.
--- NOTE | 2022-07-16 17:34 | NUR ---
MEDICATED PER EMAR PAIN 11/09
--- NOTE | 2022-07-16 17:50 | NUR ---
IV FLUIDS INFUSING, IV SITE INTACT, PT TALKING ON HIS PHONE. NO DISTRESS NOTED. CALL URIOSTEGUI IN REACH.
--- NOTE | 2022-07-16 18:56 | NUR ---
PT UP TO THE RESTROOM, PAIN 09/09.
--- NOTE | 2022-07-16 19:30 | NUR ---
PAIN MEDICATION ADMINISTERED VIA IV 0.5ML OF DILAUDID, 0.5ML WASTED
--- NOTE | 2022-07-16 20:03 | NUR ---
Report received from Leona Hernandez LPN
--- NOTE | 2022-07-16 20:44 | NUR ---
Patient report given to Kasey Uriostegui Rn.
--- NOTE | 2022-07-16 21:05 | NUR ---
Patient requesting nausea medication and pain medication, Md notified, Orders to follow.
--- NOTE | 2022-07-16 23:48 | NUR ---
PATIENT GIVEN MORPHINE, CRAMPING PAIN 10/10. RESPIRATIONS EVEN AND UNLABORED, CALL LIGHT AND BEDSIDE TABLE WITHIN REACH.
[2022-07-17 04:04] VITALS: BP 164/101
--- NOTE | 2022-07-17 04:09 | NUR ---
PATIENT COMPLAINTS OF CRAMPING, MORPHINE GIVEN. PATIENT STATES HE WOULD LIKE TO EAT, INFORMED PATIENT OF THE POTENTIAL FOR HIS SYMTOMS TO BE EXACERBATED BY EATING, AND THAT THE MD WOULD COME AROUND THIS MORNING TO ASSESS IF HE IS READY TO EAT.
[2022-07-17 05:57] LABS: BASO% 0.2 % (0-3); HEMATOCRIT 37.7 % (39.0-50.0); HEMOGLOBIN 12.2 g/dl (14.0-18.0); IMMATURE GRANULOCYTES 0.2 % (0.0-5.0); MEAN CELL VOLUME 89.1 fL CALC (80.0-100.0); MEAN CORPUSCULAR HGB 28.8 pG CALC (26.0-32.0); MEAN CORPUSCULAR HGB CONC 32.4 g/dL CAL (32.0-36.0); MONO% 12.7 % (2-13); NEUT# 2.02 thou/uL (1.82-7.42); NEUT% 42.9 % (42-76); RED BLOOD COUNT 4.23 mill/uL (4.70-6.10); RED CELL DISTRI WIDTH 12.3 % (11.5-15.5)
--- NOTE | 2022-07-17 06:32 | NUR ---
pt glucose was 130 @0630
[2022-07-17 06:34] LABS: ALKALINE PHOSPHATASE 97 u/l (38-126); ANION GAP 16 (6-22 (CALC)); BUN 5 mg/dL (9-20); BUN/CREATININE RATIO 7 (12-20 (CALC)); CARBON DIOXIDE 20 mmol/l (22-30); CHLORIDE 105 mmol/l (95-108); CREATININE 0.7 mg/dL (0.7-1.3); GFR FOR AFR.AMER. > 60 ML/MIN (>=60 (CALC)); GFR OTHER RACES > 60 ML/MIN (>=60 (CALC)); SGOT/AST 71 u/l (17-59); SODIUM 137 mmol/l (137-146); TOTAL PROTEIN 6.7 g/dL (6.3-8.2)
[2022-07-17 06:41] LABS: BILIRUBIN, TOTAL 0.6 mg/dL (0.2-1.3)
[2022-07-17 07:21] VITALS: BP 160/92
--- NOTE | 2022-07-17 07:27 | NUR ---
BEDSIDE SHIFT REPORT, PT AWAKE ALERT AND ORIENTED SITTING UP IN BED, C/O ABD PAIN @ 8/10, IVF 0.9NS INFUSING @ 150 ML/HR TO SITE IN LW, CALL URIOSTEGUI IN REACH AND BED LOCKED IN LOWEST POSITION.
[2022-07-17 09:11] VITALS: BP 142/91
--- NOTE | 2022-07-17 11:06 | NUR ---
pt glucose was 222 @1045
--- NOTE | 2022-07-17 13:10 | NUR ---
PT COMPLAIN EARLIER MORPHINE NOT CONTROLLING PAIN, NOIFIED AND WROTE MORE ORDERS FOR ANALGESICS. PT EDUCATED ON WAYS TO HELP NTO CONTROL PAIN AND STATES UNDERSTANDING. PAIN ISSUES ADDRESSED, WILL CONTINUE TO MONITOR.
--- NOTE | 2022-07-17 15:30 | NUR ---
PT C/O OF NOT FEELING GOOD AT THIS TIME, BG MEASURED = 49, WILL GIVE D-10 DEMARCUS FROM PHARMACY
[2022-07-17 15:42] VITALS: BP 134/91
--- NOTE | 2022-07-17 18:30 | NUR ---
PT C/O NOT FEELING GOOD AND THINKS BG IS LOW, @ 1400 GLUCOSE = 33,OJ WITH SUGAR GIVEN ON RECHEDK @ 1435 BG = 83. AT 1530 BG CHECKED = 49, D10 GIVEN @ 1604. BG RECHECKED AGAIN @ 1826 = 38, D-10 GIVEN @ 1857. HS R WILL CONTINUE TO MONITOR.
[2022-07-17 19:07] VITALS: BP 135/87
--- NOTE | 2022-07-17 19:25 | NUR ---
REPORT RECEIVED FROM Etienne QIU RN
--- NOTE | 2022-07-17 20:20 | NUR ---
PATIENT RESTING COMOFRTABLY IN BED WATCHING TV, NO CURRENT COMPLAINTS AT THIS TIME. PATIENT DOES NOT WANT TO RECEIVED NIGHT DOES OF 70/30. PATIEN HAS HAD A DIFFICULT TIME MAINTAINING NORMAL BLOOD SUGAR. STATES HE HAS BEEN PUT ON TRESIBA IN THE PAST AND THAT HAS ALSO RESULTED IN PATIENT HAVING LOW BLOOD SUGAR. PLAN OF CARE REVIEWED WITH PATIENT CALL LIGHT AND BEDSIDE TABLE WITHIN REACH.
--- NOTE | 2022-07-17 23:14 | NUR ---
PATIENT MEDICATED FOR PAIN WITH LORETAB, PATIENT STATES THWE MORPHINE GIVEN EARLIER HAD NO EFFECT. PATIENT STATES THE LORETAB WORKS BETTER.
--- NOTE | 2022-07-18 03:53 | NUR ---
PATIENT MEDICATED FOR PAIN, LORETAB GIVEN. CALL LIGHT AND BESIDE TABLE WITHIN REACH.
[2022-07-18 03:55] VITALS: BP 159/111
[2022-07-18 06:04] LABS: BASO% 0.2 % (0-3); EOS% 2.5 % (0-8); HEMATOCRIT 37.8 % (39.0-50.0); HEMOGLOBIN 12.1 g/dl (14.0-18.0); IMMATURE GRANULOCYTES 0.2 % (0.0-5.0); LYMPH% 51.5 % (15-41); MEAN CELL VOLUME 90.2 fL CALC (80.0-100.0); MEAN CORPUSCULAR HGB 28.9 pG CALC (26.0-32.0); MONO% 12.3 % (2-13); NEUT# 1.49 thou/uL (1.82-7.42); NEUT% 33.3 % (42-76); RED BLOOD COUNT 4.19 mill/uL (4.70-6.10); RED CELL DISTRI WIDTH 12.6 % (11.5-15.5)
[2022-07-18 06:07] LABS: ALBUMIN 3.4 g/dL (3.2-5.0); ALKALINE PHOSPHATASE 82 u/l (38-126); AMYLASE 83 u/l (30-110); ANION GAP 9 (6-22 (CALC)); BILIRUBIN, TOTAL 0.3 mg/dL (0.2-1.3); BUN 2 mg/dL (9-20); BUN/CREATININE RATIO 3 (12-20 (CALC)); CARBON DIOXIDE 23 mmol/l (22-30); CHLORIDE 109 mmol/l (95-108); CREATININE 0.8 mg/dL (0.7-1.3); GFR FOR AFR.AMER. > 60 ML/MIN (>=60 (CALC)); GFR OTHER RACES > 60 ML/MIN (>=60 (CALC)); LIPASE 93 u/l (23-300); POTASSIUM 3.9 mmol/l (3.5-5.1); SGOT/AST 55 u/l (17-59); SODIUM 138 mmol/l (137-146); TOTAL PROTEIN 5.9 g/dL (6.3-8.2)
[2022-07-18 06:22] VITALS: BP 151/96
--- NOTE | 2022-07-18 07:15 | NUR ---
SHIFT CHANGE REPORT, PT AWAKE ALERT AND ORIENTED SITTING UP IN BED, C/O ABD PAIN, IVF INFUSING, CALL URIOSTEGUI IN REACH AND BED LOCKED IN LOWEST POSITION.
--- NOTE | 2022-07-18 09:00 | NUR ---
PT STATES HE IS FEELING BETTER AND REQUESTING SOLID FOODS, MEDICAL TEAM NOTIFIED, CONSULTED WITH PT AND ORDERED SOLID FOOD. PT C/O INCREASED PAIN AFTER EATING BUT REPORTED IMPROVEMENTS AFTER GIVEN ANALGESICS.
[2022-07-18] MEDS ORDERED: LORTAB5 PO ×2 (11:23→18:32)
--- NOTE | 2022-07-18 14:27 | NUR ---
Discharge instructions given. Patient verbalizes understanding of same. Discharged in stable condition via Wheelchair to Home with family. All belongings sent with pt.
== END 2022-07-18 14:18 | disposition home or self-care (01) | DRG 440 ==
LOC: ED 12:46 → ED-I 15:00 → ED 17:51 → MS2 17:52
PROVIDERS: Nurse Practitioner; Nurse Practitioner Family; ADMIT Internal Medicine; ATTEND Internal Medicine
DX: K85.20 Alcohol induced acute pancreatitis without necrosis or infection (principal); E11.65 Type 2 diabetes mellitus with hyperglycemia; I10 Essential (primary) hypertension; Z79.4 Long term (current) use of insulin
CPT/HCPCS: G0378; J1650; Q9967; S0164

== ENCOUNTER 2023-12-12 13:06 | Emergency (ER) | payer BC ==
[~2023-12-12] VITALS: Ht 172.7 cm; Wt 71.6 kg
[~2023-12-12 13:06] MED LIST changes: +LORTAB5 PO
[2023-12-12 13:44] VITALS: BP 125/86
[2023-12-12 13:46] VITALS: BP 96/64
[2023-12-12] MEDS ORDERED: ERYTHROMYCIN O3.5 GM OD (13:59)
[2023-12-12 14:00] VITALS: BP 129/87
[2023-12-12] MEDS ORDERED: NAPROXEN500 MG PO (14:00)
[2023-12-12 14:01] VITALS: BP 129/87
== END 2023-12-12 14:29 | disposition home or self-care (01) | DRG 125 ==
LOC: ED 13:06
DX: H10.9 Unspecified conjunctivitis (principal)